=== PATIENT | female | born 1980 | race Caucasian/White ===

== ENCOUNTER → 2023-08-15 09:39 | Outpatient (REF) | payer OTHER, SELFPAY | LOC: HWRAD 09:39 | PROVIDERS: ATTENDING PHYSICIAN Nurse Practitioner Family; FAMILY PHYSICIAN Family Medicine | DX: R10.2 Pelvic and perineal pain (principal) | CPT/HCPCS: 76830; 76856 ==

== ENCOUNTER → 2024-03-10 12:56 | Outpatient (REF) | payer OTHER, SELFPAY | LOC: WDC 12:56 | PROVIDERS: ATTENDING PHYSICIAN Physician Assistant Medical | DX: Z12.31 Encounter for screening mammogram for malignant neoplasm of breast (principal) | CPT/HCPCS: 77063; 77067 ==

== ENCOUNTER → 2024-07-27 11:52 | Outpatient (REF) | payer OTHER, SELFPAY | LOC: RAD 11:52 | PROVIDERS: ATTENDING PHYSICIAN Family Medicine | DX: R05.1 Acute cough (principal) | CPT/HCPCS: 71046 ==

== ENCOUNTER 2024-08-29 16:12 | Emergency (ER) | payer OTHER, SELFPAY ==
[2024-08-29 16:15] VITALS: BP 155/90
--- NOTE | 2024-08-29 18:43 | ED.GENMED ---
History of Present Illness
<Spencer Joe PA-C - Last Filed: 08/29/24 18:47>
General
Chief Complaint: Abdominal Pain
Source: patient
Time Seen by Provider: 08/29/24 18:11
History of Present Illness
History of Present Illness:
43-year-old female with past medical history of hypothyroidism presenting to the ER for evaluation of left lower pelvic pain that began about 1 week ago which started with her menstrual cycle, pain pretty typical of her usual menstrual cycle but
more intense and despite her menstrual cycle subsiding patient still with pain to the left pelvis. Patient is concerned about her uterine fibroid which is known, had grown to about 3 cm when she last had an ultrasound 1 year ago. Patient has no
other symptoms including fevers, chills, rigors, urinary symptoms, bowel changes, back or flank pain. Patient has been alternating Motrin and Tylenol every 3 hours with some relief. Notes when pain is at its worst it is about a 10 out of 10,
currently 1 out of 10.
Past History
<Spencer Joe PA-C - Last Filed: 08/29/24 18:47>
Past History
ED Past Medical History: Other (Gastritis)
ED Past Surgical History: Cholecystectomy and
Social History
Tobacco: Non-smoker
Alcohol: Occasional
Drug: None
Personal:
Living: with family
Employment: Employed
Family History
Family History: Other
Review of Systems
<Spencer Joe PA-C - Last Filed: 08/29/24 18:47>
Review of Systems
All Other Systems: ROS reviewed and negative except as documented in HPI and ROS
Phy Exam
<NAOMY Ventura Last Filed: 08/29/24 18:47>
Physical Exam
Physical Exam:
GENERAL: Alert , in no apparent distress
EYE: clear conjunctiva b/l
HEAD: NCAT
ENT: o/p clr, mmm.
CARDIAC: Regular rate and rhythm .
LUNGS: Clear breath sounds bilaterally, no acute respiratory distress, no wheezes/rales/rhonchi
ABDOMEN: Soft, Mildly tender within the left pelvis , no r/g, no cvat
NEUROLOGICAL: Alert and oriented
SKIN: Warm and dry, skin intact.
MUSCULOSKELETAL: No edema, well perfused.
PSYCH: Normal and appropriate interaction.
Scores
<Spencer Joe PA-C - Last Filed: 08/29/24 18:47>
Heart Failure Risk
Heart Failure Risk Score: Not Applicable
Heart Score for Chest Pain Patients
STEMI patient?: Not applicable
Withdrawal Assessment of Alcohol
Withdrawal Assessment Completed?: Not applicable
Course
<Spencer Joe PA-C - Last Filed: 08/29/24 18:47>
Orders/Labs/Results
Orders:
Orders
08/29/24 18:24
Test Result ONCE
US Transvaginal [US Pelvis W Transvag Combined] Urgent
Comment:
Reason For Exam: left pelvic pain, hx fibroids
08/29/24 19:53
CT Abd/pelvis W Iv Cont Urgent
Comment:
Reason For Exam: LLQ pain
08/29/24 20:17
Complete Blood Count/With Diff Urgent
Comprehensive Metabolic Panel Urgent
HCG, Serum Qualitative Screen Urgent
Lipase Urgent
08/29/24 22:54
Urinalysis Reflex To Culture Urgent
Date Specimen was Collected: 08/29/24
Time Specimen was Collected: 22:53
Abnormal Lab Results
08/29/24
20:17
MCH 31.7 H pg
(27.0-31.0)
Chloride 108 H mmol/L
(98-107)
08/29/24 20:17
08/29/24 20:17
Vital Signs
Initial and Last Documented VS:
Initial Vital Signs
Temp Pulse Resp BP Pulse Ox
99.1 F 89 18 155/90 99
08/29/24 16:15 08/29/24 16:15 08/29/24 16:15 08/29/24 16:15 08/29/24 16:15
Last Documented Vital Signs
Temp Pulse Resp BP Pulse Ox
99.1 F 89 18 155/90 99
08/29/24 16:15 08/29/24 16:15 08/29/24 16:15 08/29/24 16:15 08/29/24 18:47
<Ingrid Newman PA-C - Last Filed: 08/30/24 02:04>
Orders/Labs/Results
Orders:
Orders
08/29/24 18:24
Test Result ONCE
US Transvaginal [US Pelvis W Transvag Combined] Urgent
Comment:
Reason For Exam: left pelvic pain, hx fibroids
08/29/24 19:53
CT Abd/pelvis W Iv Cont Urgent
Comment:
Reason For Exam: LLQ pain
08/29/24 20:17
Complete Blood Count/With Diff Urgent
Comprehensive Metabolic Panel Urgent
HCG, Serum Qualitative Screen Urgent
Lipase Urgent
08/29/24 22:54
Urinalysis Reflex To Culture Urgent
Date Specimen was Collected: 08/29/24
Time Specimen was Collected: 22:53
Abnormal Lab Results
08/29/24
20:17
MCH 31.7 H pg
(27.0-31.0)
Chloride 108 H mmol/L
(98-107)
08/29/24 20:17
08/29/24 20:17
Vital Signs
Initial and Last Documented VS:
Initial Vital Signs
Temp Pulse Resp BP Pulse Ox
99.1 F 89 18 155/90 99
08/29/24 16:15 08/29/24 16:15 08/29/24 16:15 08/29/24 16:15 08/29/24 16:15
Last Documented Vital Signs
Temp Pulse Resp BP Pulse Ox
99.1 F 89 18 155/90 99
08/29/24 16:15 08/29/24 16:15 08/29/24 16:15 08/29/24 16:15 08/29/24 18:47
<Spencer Joe PA-C - Last Filed: 08/29/24 18:47>
MDM/Problems Addressed
Differential Diagnosis Includes:
- Ovarian cyst
- Ovarian torsion
- Endometriosis
- Uterine fibroid
- renal/ureteral colic
- Urinary tract infection
-Diverticulitis
MDM/Problems Addressed:
43-year-old female presenting the ER for evaluation of left lower pelvic pain, waxes and wanes, currently very tolerable. Will obtain ultrasound to further evaluate. Low threshold to CT as well as ultrasound not convincing for source of pain.
Labs ordered. Patient declining anything for pain.
<Spencer Joe PA-C - Last Filed: 08/29/24 18:47>
*Pulse Oximetry
SaO2: 99
Oxygen Mode of Delivery: Room air
Patient hypoxic: no
Data Reviewed
Review of Other/Old Records Reveals: Labs, Records and Radiology Studies
<Ingrid Newman PA-C - Last Filed: 08/30/24 02:04>
*Critical Care Note
Total Time (30-74mins, 75-104mins- exclusive of procedures): Not Applicable
<Ingrid Newman PA-C - Last Filed: 08/30/24 02:04>
Update Note
Update Note:
Update: Received patient in signout pending labs and CT scan. Labs reviewed without any clinically significant abnormalities. Urine shows no evidence of infection. CT scan reviewed with radiologist which shows findings consistent with possible
mild colitis. Did reassess patient and her abdomen is soft and nontender throughout. She remains very well-appearing, in no apparent distress. She has not required any pain management in the emergency department. Symptoms possibly secondary to
perimenstrual discomfort, uterine fibroid, or mild colitis noted on CT scan. However�given patient afebrile with no leukocytosis�do not feel antibiotics indicated at this time. Feel stable for discharge home with continued monitoring of symptoms
at home and supportive care. She will follow with primary care. Strict return precautions discussed
ED Attending Note
<Spencer Joe PA-C - Last Filed: 08/29/24 18:47>
-
Portions of this chart may have been created with voice recognition software.� Occasional wrong word or��sound alike� substitutions may have occurred due to the inherent limitations of voice recognition software.
Discharge Plan
Departure
Patient Disposition: Home (Routine Discharge)
Date of Disposition: 08/29/24
Time of Disposition: 23:06
Patient with high blood pressure during this ER visit?: Yes
Condition: Good
Discharge Problem:
Abdominal pain
Instructions: Colitis - Discharge instructions, Abdominal Pain, BLOOD PRESSURE
Prescriptions:
No Action
levothyroxine 88 MCG tablet
88 mcg PO DAILY
dicyclomine 10 MG capsule
10 mg PO TID
naproxen 500 MG tablet
500 mg PO BID PRN (Reason: abd pain) Qty: 60 0RF
famotidine [Pepcid] 40 MG tablet
40 mg PO BID Qty: 60 0RF
Referrals:
Aye Rosario PA-C [Family Provider, Family Practice] - Follow up in 5-7 days
Activity Restrictions/Additional Instructions:
RETURN TO THE EMERGENCY DEPARTMENT WITH ANY FEVER, CHILLS, PERSISTENT/WORSENING ABDOMINAL PAIN, INTRACTABLE NAUSEA/VOMITING, SIGNS OF SEVERE DEHYDRATION, WORSENING CURRENT SYMPTOMS, OR ANY OTHER CONCERNS
- As discussed�your lab work and urine showed no acute abnormalities. Your CT scan showed evidence of possible mild colitis. Your ultrasound showed a posterior fibroid on your uterus which appears relatively similar to prior
- Please continue to take Tylenol and/or Motrin as needed for pain. It is important stay well-hydrated. I recommend a bland diet/low fiber over the next 2 days and slowly advance as tolerated
- Follow-up with your primary care provider for further evaluation/management if symptoms are improving
Monitor your symptoms closely and return to the emergency department with any acute worsening/new symptoms or any other concerns
Interventions
Interventions:
*Risk Screen - Suicide Last Done: 08/29/24 16:18
*General Assessment Last Done: 08/29/24 20:56
*Neglect/Abuse Screening Last Done: 08/29/24 20:56
*ED- Fall Risk Assessment Last Done: 08/29/24 20:56
*ED COVID-19 Vaccine History Last Done: 08/29/24 20:56
*Nursing Disposition Last Done: 08/29/24 23:32
UG-Dpzvdl-Ustwhgevhs Assessment Last Done: 08/29/24 22:26
Discharge Date and Time
Discharge Date/Time: 08/29/24 23:33
Print Language: [id number]
[2024-08-29 20:26] LABS: Hematocrit 39.2 % (37.0-47.0); Hemoglobin 13.7 g/dL (12.0-16.0); Mean Corp Hgb Conc. 34.9 g/dL (33.0-37.0); Mean Corpuscular Volume 90.7 fL (81.0-99.0); Nucleated Red Blood Cells % 0 %; Platelet Count 335 10^3/uL (130-400); Red Cell Dist. Width 11.7 % (11.5-14.5)
[2024-08-29 20:37] LABS: HCG, Serum Qualitative Screen Negative
[2024-08-29 20:40] LABS: ALT (SGPT) 15 U/L (0-35); AST (SGOT) 18 U/L (14-36); Albumin 3.9 g/dl (3.5-5.0); Alkaline Phosphatase 55 U/L (38-126); Blood Urea Nitrogen 16 mg/dl (7-17); Calcium 9.2 mg/dl (8.4-10.2); Carbon Dioxide 26 mmol/L (22-30); Chloride 108 mmol/L (98-107); Glucose 84 mg/dl (70-99); Lipase 147 U/L (23-300); Potassium 3.9 mmol/L (3.5-5.1); Sodium 136 mmol/L (135-145); Total Protein 6.6 g/dl (6.3-8.2); eGFR > 60.00
[2024-08-29 23:03] LABS: Urine Character Clear (Clear)
== END 2024-08-29 23:33 | disposition home or self-care (01) ==
LOC: EMR 16:12
PROVIDERS: Physician Assistant Medical; EMERGENCY PHYSICIAN Student in an Organized Health Care Education/Training Program; FAMILY PHYSICIAN Physician Assistant Medical
DX: R10.2 Pelvic and perineal pain (principal); E03.9 Hypothyroidism, unspecified
CPT/HCPCS: 99284; 74177; 76830; 76856; 80053; 81003; 83690; 84703; 85025; Q9967

== ENCOUNTER 2025-02-10 06:29 | Day surgery (SDC) | payer OTHER, SELFPAY | END 2025-02-10 12:38 | disposition home or self-care (01) | LOC: GI 06:29 | PROVIDERS: ATTENDING PHYSICIAN Internal Medicine | DX: K62.89 Other specified diseases of anus and rectum (principal); K64.9 Unspecified hemorrhoids; R93.3 Abnormal findings on diagnostic imaging of other parts of digestive tract; R10.32 Left lower quadrant pain | CPT/HCPCS: 45380; 88305 ==